=== PATIENT | female | born 1985 | race Caucasian/White ===

== ENCOUNTER 2019-01-28 09:25 | Emergency (ER) | payer BC ==
[~2019-01-28] VITALS: Ht 165.1 cm; Wt 75.3 kg
--- OUTSIDE RECORDS SUMMARY | 2019-01-28 09:28 | XMS REPORT | Clinical Summary ---
Author Author [facility] Organization [facility] Address Unknown Phone Unavailable Care Team Providers Care Manager Billing Name Role Phone Asked, No Pcp PCP Unavailable Allergies Comments Active Allergy Reactions Severity Noted Date Sumatriptan Other (See 08/01/2015 Comments) Medications End Date Status Medication Sig Dispensed Refills Start Date Active metoprolol succinate XL Take 25 mg by 0 (TOPROL-XL) 25 MG 24 hr mouth 2 (two) tablet times a day. Active valACYclovir (VALTREX) Take 500 mg 0 500 MG tablet by mouth daily. Active butalbital-acetaminophen- Take 1 0 caff (FIORICET) 50-300-40 capsule by mg capsule mouth every 4 (four) hours as needed (for headaches). Active acetaminophen (TYLENOL) Take 1,000 mg 0 500 MG tablet by mouth every 6 (six) hours as needed for mild pain. Active PNV no.95/ferrous Take 1 tablet 0 fum/folic ac ( by mouth ORAL) daily. Active ibuprofen (ADVIL) 200 MG Take 600 mg 0 tablet by mouth every 6 (six) hours as needed for mild pain. 02/10/2018 Discontinued (Med List Cleanup) etonogestrel-ethinyl Insert 1 each 0 estradiol (NUVARING) into the 0.12-0.015 mg/24 hr vagina every vaginal ring 28 days. Insert vaginally and leave in place for 3 consecutive weeks, then remove for 1 week. 02/10/2018 Discontinued (Med List Cleanup) azithromycin (ZITHROMAX Take 2 6 tablet 0 Z-TIA) 250 MG tablets the 6 tabletIndications: URI first day, (upper respiratory then 1 tablet infection) daily for 4 days. Active Problems Problem Noted Date Headache behind the eyes 02/11/2018 Intractable headache 02/10/2018 Abnormal cervical Papanicolaou smear with positive human papilloma virus 08/01/2015 (HPV) DNA test Atopic rhinitis 08/01/2015 Atypical squamous cells of undetermined significance on cytologic smear of 08/01/2015 cervix (ASC-US) Carpal tunnel syndrome 08/01/2015 Celiac disease 08/01/2015 Cervical intraepithelial neoplasia grade 1 08/01/2015 Chronic sinusitis 08/01/2015 Fatigue 08/01/2015 Pain of hand 08/01/2015 Long QT syndrome 08/01/2015 Migraine 08/01/2015 Estimated Date of Delivery Comments Yes 02/22/2018 Encounters Care Team Description Date Type Specialty Adams Frausto MD Unspecified visual field defects (Primary Dx); 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 Office Visit Ophthalmology Adams Frausto MD Committee Review 04/22/2018 Documentation [facility], Ophthalmology - Clinical Care 03/24/2018 Telephone Ophthalmology Michelle Farias MD 02/11/2018 Orders Only Obstetrics and Gynecology Michelle Farias MD Headache 02/10/2018 Documentation Obstetrics Michelle Hadley MD 02/10/2018 Documentation Obstetrics and Gynecology Michelle Farias MD Acute intractable headache, unspecified headache type (Primary Dx); 38 weeks gestation of 02/10/2018 Orders Only Obstetrics and Gynecology Gissell Gomes 02/10/2018 Telephone Ophthalmology Aneta Dickinson MD Tu, Yen-Te Christian, MD Ortique, Carla F., MD Intractable migraine with status migrainosus, unspecified migraine type (Primary Dx); Intractable headache, unspecified chronicity pattern, unspecified headache type; Acute intractable headache, unspecified headache type; 38 weeks gestation of 02/09/2018 Emergency Obstetrics and Gynecology - 02/11/2018 after 01/27/2018 Family History Medical History Relation Name Comments Heart disease Father Thyroid cancer Father Arthritis Mother tumor of vulva Gallbladder disease Mother tumor of vulva Heart disease Mother tumor of vulva Relation Name Status Comments Father Mother tumor of vulva Social History Date Tobacco Use Types Packs/Day Years Used Never Smoker Smokeless Tobacco: Never Used Drinks/Week oz/Week Comments Alcohol Use No Alcohol Habits Answer Date Recorded How often do you have a drink containing alcohol? Never 08/01/2018 How many drinks containing alcohol do you have on Not asked a typical day when you are drinking? How often do you have six or more drinks on one Not asked occasion? Estimated Date of Delivery Comments Yes 02/22/2018 Sex Assigned at Date Recorded Not on file Industry Job Start Date Occupation Not on file Not on file Not on file Travel End Travel History Travel Start No recent travel history available. Last Filed Vital Signs Reading Time Taken Comments Vital Sign 90/58 02/11/2018 8:30 AM CDT Blood Pressure 62 02/11/2018 8:30 AM CDT Pulse 36.3 C (97.3 F) 02/11/2018 8:30 AM CDT Temperature 16 02/11/2018 8:30 AM CDT Respiratory Rate 97% 02/10/2018 6:00 PM CDT Oxygen Saturation - - Inhaled Oxygen Concentration 77.1 kg (170 lb) 08/01/2018 8:58 AM HOT WALKER Weight 165.1 cm (5' 5") 08/01/2018 8:58 AM HOT WALKER Height 28.29 08/01/2018 8:58 AM HOT WALKER Body Mass Index Plan of Treatment Health Maintenance Due Date Last Done Comments CERVICAL CANCER SCREENING 2007 INFLUENZA VACCINE 12/25/2018 Procedures Comments Procedure Name Priority Date/Time Associated Diagnosis OCT, OPTIC NERVE - OU - Routine 08/01/2018 Unspecified visual field BOTH EYES 9:37 AM HOT WALKER defects Binocular vision disorder with diplopia AUTOMATED VISUAL FIELD, Routine 08/01/2018 Unspecified visual field EXTENDED - OU - BOTH EYES 9:36 AM HOT WALKER defects Binocular vision disorder with diplopia TYPE AND SCREEN, Routine 02/11/2018 OBSTETRICAL PATIENT 8:50 AM CDT T4, FREE Routine 02/11/2018 8:50 AM CDT THYROID STIMULATING Routine 02/11/2018 HORMONE 8:50 AM CDT LIPID PANEL Routine 02/11/2018 8:50 AM CDT HEMOGLOBIN A1C Routine 02/11/2018 8:50 AM CDT ESTIMATED GFR Routine 02/11/2018 7:18 AM CDT COMPREHENSIVE METABOLIC Routine 02/11/2018 PANEL 7:18 AM CDT GLUCOSE LEVEL, CSF Routine 02/10/2018 1:05 PM CDT PROTEIN, CSF Routine 02/10/2018 1:05 PM CDT CSF CELL COUNT WITH Routine 02/10/2018 DIFFERENTIAL 1:05 PM CDT GRAM STAIN Routine 02/10/2018 1:05 PM CDT CRYPTOCOCCAL ANTIGEN Routine 02/10/2018 SCREEN 1:05 PM CDT FUNGUS CULTURE Routine 02/10/2018 1:05 PM CDT CSF CULTURE Routine 02/10/2018 1:05 PM CDT MRI BRAIN & ORBIT WO STAT 02/10/2018 CONTRAST 8:08 AM CDT MRI BRAIN VENOGRAM STAT 02/10/2018 7:19 AM CDT MRA HEAD WO CONTRAST STAT 02/10/2018 7:07 AM CDT MRA NECK WO CONTRAST STAT 02/10/2018 6:55 AM CDT AST (SGOT) STAT 02/10/2018 12:32 AM CDT ALKALINE PHOSPHATASE STAT 02/10/2018 12:32 AM CDT POTASSIUM LEVEL STAT 02/10/2018 12:32 AM CDT URINALYSIS SCREEN AND Routine 02/10/2018 MICROSCOPY, WITH REFLEX 12:32 AM CDT TO CULTURE URINE CULTURE Routine 02/10/2018 12:25 AM CDT ESTIMATED GFR STAT 02/09/2018 10:53 PM CDT SEDIMENTATION RATE STAT 02/09/2018 10:53 PM CDT COMPREHENSIVE METABOLIC STAT 02/09/2018 PANEL 10:53 PM CDT HC COMPLETE BLD COUNT STAT 02/09/2018 W/AUTO DIFF 10:53 PM CDT after 01/27/2018 Results * OCT, Optic Nerve - OU (08/01/2018 9:37 AM HOT WALKER) Specimen Narrative Performed At Right Eye Reliability was good. Temporal progression was stable. Superior progression was stable. Nasal progression was stable. Inferior progression was stable. Left Eye Reliability was good. Temporal progression was stable. Superior progression was stable. Nasal progression was stable. Inferior progression was stable. * Automated Visual Field, Extended - OU (08/01/2018 9:36 AM HOT WALKER) Specimen Narrative Performed At Right Eye Threshold was 24-2. Strategy was ERICA. Reliability was good. Progression has been stable. Foveal threshold was normal. Findings include normal observations. Left Eye Threshold was 24-2. Strategy was ERICA. Reliability was good. Progression has been stable. Foveal threshold was normal. Findings include normal observations. * Type and screen, obstetrical patient (02/11/2018 8:50 AM CDT) Pathologist [facility] ABO grouping O [facility] DEPARTMENT OF PATHOLOGY AND GENOMIC MEDICINE Rh type POS [facility] DEPARTMENT OF PATHOLOGY AND GENOMIC MEDICINE Antibody screen NEG [facility] DEPARTMENT (gel) OF PATHOLOGY AND GENOMIC MEDICINE Specimen Blood Performing Organization Address [facility] [place] [address] PATHOLOGY AND [facility] MEDICINE * Thyroid stimulating hormone (02/11/2018 8:50 AM CDT) Pathologist [facility] TSH 3.14 0.27 - 4.20 uIU/mL [facility] DEPARTMENT OF PATHOLOGY AND GENOMIC MEDICINE Specimen Plasma specimen Performing Organization Address City/[facility] [place] [address] PATHOLOGY AND [facility] MEDICINE * T4, free (02/11/2018 8:50 AM CDT) Pathologist [facility] T4, free 1.0 0.9 - 1.7 ng/dL [facility] DEPARTMENT OF PATHOLOGY AND GENOMIC MEDICINE Specimen Plasma specimen Performing Organization Address [facility] Cent[facility] [place] [address] PATHOLOGY AND [facility] MEDICINE * Hemoglobin A1c (02/11/2018 8:50 AM CDT) Pathologist [facility] Hemoglobin A1C 5.2 4.0 - 5.6 % [facility] DEPARTMENT Comment: OF PATHOLOGY HbA1c cutoffs for diagnosing AND GENOMIC diabetes: MEDICINE 4.0% - 5.6%=normal 5.7% - 6.4%=increased risk for diabetes (prediabetes) >=6.5%=diabetes Goals for glycemic control (ADA 2016) < 7.0%Target for non adults with diabetes. More or less stringent targets may be appropriate for individual patients. <7.5% Target for Children and adolescents with type 1 diabetes. Specimen Blood Performing Organization Address City/[facility] Phone Number [facility] DEPARTMENT OF [address] [place] [address] PATHOLOGY AND GENOMIC MEDICINE * Lipid panel (02/11/2018 8:50 AM CDT) Cholesterol 219 (H) <200 mg/dL [facility] DEPARTMENT OF PATHOLOGY AND GENOMIC MEDICINE Triglycerides 248 (H) <150 mg/dL [facility] DEPARTMENT OF PATHOLOGY AND GENOMIC MEDICINE HDL cholesterol 56 >40 mg/dL [facility] DEPARTMENT OF PATHOLOGY AND GENOMIC MEDICINE LDL cholesterol 128 (H)Comment: Result <100 mg/dL [facility] DEPARTMENT obtained by direct LDL OF PATHOLOGY measurement AND GENOMIC MEDICINE Lipid panel SeeBelow [facility] DEPARTMENT interpretation Comment: OF PATHOLOGY Total Cholesterol AND GENOMIC (mg/dL) MEDICINE <200 Desirable 200-239Borderline -high >=240High Triglycerides (mg/dL) <150 Normal 150-199Borderline -high 200-499High >=500Very high HDL Cholesterol (mg/dL) <40Low (male) <40Low (female) LDL Cholesterol (mg/dL) <100 Optimal 100-129Near or above optimal 130-159Borderline -high 160-189High >=190Very high Risk Catergories that modify LDL goals. Risk Catergories LDL goal (mg/dL) CHD and CHD risk equivalent<100 (10-year risk >20%) Multiple (2+) risk factors <130 (10-year risk=<20%) 0-1 risk factors <160 (<10-year risk) Defining levels of lipids in metabolic syndrome Triglycerides >=150 mg/dL HDL Cholesterol Men <40 mg/dL Women <40 mg/dL Non-HDL cholesterol is a second target for therapy in persons with high triglycerides (>=200 mg/dL) Specimen Plasma specimen Performing Organization Address City/State/Zipcode Phone Number [facility] [address] [place] [id number] PATHOLOGY AND [employer] [facility] * Estimated GFR (02/11/2018 7:18 AM CDT) Only the most recent of 2 results within the time period is included. [facility] Estimated GFR >=90 mL/min/1.73 m2 [facility] DEPARTMENT Comment: OF PATHOLOGY CatergoryUnitsInte AND GENOMIC rpretation MEDICINE G1 >=90 Normal or high G2 60-89Mildly decreased [id number] Mildly to moderately decreased [id number] Moderately to severely decreased G4 15-29Severely decreased G5 <15Kidney failure The eGFR was calculated using the Chronic Kidney Disease Epidemiology Collaboration (CKD-EPI) equation. Interpretation is based on recommendations of the National Kidney Foundation-Kidney Disease Outcomes Quality Initiative (NKF-KDOQI) published in 2014. Specimen Plasma specimen Performing Organization Address City/State/Zipcode Phone Number [address] [address] PATHOLOGY [facility] [employer] [facility] * Comprehensive metabolic panel (02/11/2018 7:18 AM CDT) Only the most recent of 2 results within the time period is included. [facility] Sodium 137 135 - 148 mEq/L [facility] DEPARTMENT OF PATHOLOGY AND GENOMIC MEDICINE Potassium 4.2 3.5 - 5.0 mEq/L [facility] DEPARTMENT OF PATHOLOGY AND GENOMIC MEDICINE Chloride 102 98 - 112 mEq/L [facility] DEPARTMENT OF PATHOLOGY AND GENOMIC MEDICINE CO2 22 (L) 24 - 31 mEq/L [facility] DEPARTMENT OF PATHOLOGY AND GENOMIC MEDICINE Anion gap 13@ANIO 7 - 15 mEq/L [facility] DEPARTMENT OF PATHOLOGY AND GENOMIC MEDICINE BUN 10 6 - 20 mg/dL [facility] DEPARTMENT OF PATHOLOGY AND GENOMIC MEDICINE Creatinine 0.77 0.50 - 0.90 mg/dL [facility] DEPARTMENT OF PATHOLOGY AND GENOMIC MEDICINE Glucose 76 65 - 99 mg/dL [facility] DEPARTMENT OF PATHOLOGY AND GENOMIC MEDICINE Calcium 8.8 8.3 - 10.2 mg/dL [facility] DEPARTMENT OF PATHOLOGY AND GENOMIC MEDICINE Protein 6.3 6.3 - 8.3 g/dL [facility] DEPARTMENT Comment: OF PATHOLOGY [place] AND GENOMIC 4.6-7.0 g/dL MEDICINE 1 week 4.4-7.6 g/dL 7 months-1year 5.1-7.3 g/dL 1-2 years5.6-7 .5 g/dL >3 years6.0-8 .0 g/dL 18-150 6.3-8.3 g/dL Albumin 2.4 (L) 3.5 - 5.0 g/dL [facility] DEPARTMENT OF PATHOLOGY AND GENOMIC MEDICINE A/G ratio 0.6 (L) 0.7 - 3.8 [facility] DEPARTMENT OF PATHOLOGY AND GENOMIC MEDICINE Alkaline 101 35 - 104 U/L [facility] DEPARTMENT phosphatase OF PATHOLOGY AND GENOMIC MEDICINE AST 17 10 - 35 U/L [facility] DEPARTMENT OF PATHOLOGY AND GENOMIC MEDICINE ALT 17 5 - 50 U/L [facility] DEPARTMENT OF PATHOLOGY AND GENOMIC MEDICINE Total bilirubin 0.3 0.0 - 1.2 mg/dL [facility] DEPARTMENT OF PATHOLOGY AND GENOMIC MEDICINE Specimen Plasma specimen Performing Organization Address City/[facility] Phone Number [facility] [place] [address] PATHOLOGY AND GENOMIC MEDICINE * Cryptococcal antigen, screen (02/10/2018 1:05 PM CDT) Pathologist [facility] Cryptococcal Ag Negative - No Cryptococcus [facility] DEPARTMENT antigen detected. OF PATHOLOGY Comment: AND GENOMIC Specimen Information MEDICINE Specimen Source: CSF (Spinal Fluid) Specimen Site: Tube 2 Colorless Specimen Cerebrospinal fluid - Tube 1 Performing Organization Address City/[facility] Phone Number [facility] [place] [address] PATHOLOGY AND GENOMIC MEDICINE * Gram stain (02/10/2018 1:05 PM CDT) Pathologist [facility] Gram stain No WBC's or organisms seen. [facility] DEPARTMENT isolate Comment: OF PATHOLOGY Specimen Information AND GENOMIC Specimen Source: CSF (Spinal MEDICINE Fluid) Specimen Site: Tube 2 Colorless Specimen Cerebrospinal fluid Performing Organization Address City/State/Zipcode Phone Number [facility] [place] [address] PATHOLOGY AND GENOMIC MEDICINE * CSF culture (02/10/2018 1:05 PM CDT) Pathologist [facility] CSF culture No growth after 3 days. [facility] DEPARTMENT isolate Comment: OF PATHOLOGY Specimen Information AND GENOMIC Specimen Source: CSF (Spinal MEDICINE Fluid) Specimen Site: Tube 2 Colorless Specimen Cerebrospinal fluid - Tube 1 Performing Organization Address City/[facility]/Zipcode Phone Number [facility] [place] [address] PATHOLOGY AND GENOMIC MEDICINE * Fungus culture (02/10/2018 1:05 PM CDT) Fungus culture No growth after 4 weeks of [facility] DEPARTMENT isolate incubation. OF PATHOLOGY Comment: AND GENOMIC Specimen Information MEDICINE Specimen Source: CSF (Spinal Fluid) Specimen Site: Tube 2 Colorless Specimen Cerebrospinal fluid - Tube 1 Performing Organization Address [facility] Cent[facility] [place] [address] PATHOLOGY AND GENOMIC MEDICINE * CSF cell count with differential (02/10/2018 1:05 PM CDT) CSF tube number Tube 1 [facility] DEPARTMENT OF PATHOLOGY AND GENOMIC MEDICINE Color, CSF Colorless [facility] DEPARTMENT OF PATHOLOGY AND GENOMIC MEDICINE Appearance, CSF Clear [facility] DEPARTMENT OF PATHOLOGY AND GENOMIC MEDICINE RBC, CSF 12 (H) 0 - 1 /CMM [facility] DEPARTMENT OF PATHOLOGY AND GENOMIC MEDICINE WBC, CSF 0 0 - 5 /CMM [facility] DEPARTMENT OF PATHOLOGY AND GENOMIC MEDICINE CSF mononuclear 0/CMM [facility] DEPARTMENT cell OF PATHOLOGY AND [employer] MEDICINE Specimen Cerebrospinal fluid Performing Organization Address [facility] Phone Number [facility] [place] [address] PATHOLOGY AND [employer] MEDICINE * Protein, CSF (02/10/2018 1:05 PM CDT) Protein, CSF 20 15 - 45 mg/dL [facility] DEPARTMENT OF PATHOLOGY AND GENOMIC MEDICINE Specimen Cerebrospinal fluid Performing Organization Address [facility] Cent[facility] [place] [address] PATHOLOGY AND [facility] * Glucose level, CSF (02/10/2018 1:05 PM CDT) Glucose, CSF 45 40 - 70 mg/dL [facility] DEPARTMENT OF PATHOLOGY AND GENOMIC MEDICINE Specimen Cerebrospinal fluid Performing Organization Address [facility] Center[facility] [place] [address] PATHOLOGY AND [facility] MEDICINE * MRI Brain & Orbits wo contrast (02/10/2018 8:08 AM CDT) Specimen Narrative Performed At EXAMINATION:MRI BRAIN & ORBITWO CONTRAST [facility] CLINICAL HISTORY:headache lr6 palsyorbits added by neurologist COMPARISON:MR angiography brain February 10, 2018.. FINDINGS: 1.Diffusion images demonstrate no evidence of acute ischemia in the brain. 2.Conventional images of the brain demonstrate no significant abnormality. Specifically there are no definite white matter lesions. There is no volume loss. There is no abnormality in the brainstem. 3.Images of the orbits demonstrate no intraorbital abnormality. There is no evidence of a cavernous sinus lesion. There is a slightly more tortuous and ectatic cavernous carotid artery on the right compared to the left. There is no evidence of aneurysm on the MRI angiogram. 4.There is minimal mucosal thickening in the ethmoid sinus. IMPRESSION: No significant abnormality. [facility]-[id number] Procedure Note Interface, Radiology Results - 02/10/2018 8:28 AM CDT EXAMINATION: MRI BRAIN & ORBIT WO CONTRAST CLINICAL HISTORY: headache lr6 palsy orbits added by neurologist COMPARISON: MR angiography brain February 10, 2018.. FINDINGS: 1. Diffusion images demonstrate no evidence of acute ischemia in the brain. 2. Conventional images of the brain demonstrate no significant abnormality. Specifically there are no definite white matter lesions. There is no volume loss. There is no abnormality in the brainstem. 3. Images of the orbits demonstrate no intraorbital abnormality. There is no evidence of a cavernous sinus lesion. There is a slightly more tortuous and ectatic cavernous carotid artery on the right compared to the left. There is no evidence of aneurysm on the MRI angiogram. 4. There is minimal mucosal thickening in the ethmoid sinus. IMPRESSION: No significant abnormality. [facility]-[id number] Performing Organization Address City/State/Zipcode Phone Number [facility] [address] [place] [address] * MRI Brain Venogram (02/10/2018 7:19 AM CDT) Specimen Narrative Performed At EXAMINATION:MRI BRAIN VENOGRAM [facility] CLINICAL HISTORY:Headachechronicnormal neuro exam COMPARISON:None. TECHNIQUE: Head MRV using 2D [id number] technique with multiplanar MIP reconstruction. FINDINGS: There is normal flow-related signal with no significant stenosis or filling defect within bilateral internal cerebral veins, basal veins of [place], vein of [place], straight sinus, superior sagittal sinus, transverse and sigmoid sinuses, and internal jugular veins. The right transverse-sigmoid sinus-internal jugular vein complex is mildly dominant. IMPRESSION: Unremarkable head MRV with no significant stenosis or evidence of venous thrombosis. [id number] Procedure Note Interface, Radiology Results Incoming - 02/10/2018 7:48 AM CDT EXAMINATION: MRI BRAIN VENOGRAM CLINICAL HISTORY: Headache chronic normal neuro exam COMPARISON: None. TECHNIQUE: Head MRV using 2D [id number] technique with multiplanar MIP reconstruction. FINDINGS: There is normal flow-related signal with no significant stenosis or filling defect within bilateral internal cerebral veins, basal veins of [place], vein of [place], straight sinus, superior sagittal sinus, transverse and sigmoid sinuses, and internal jugular veins. The right transverse-sigmoid sinus-internal jugular vein complex is mildly dominant. IMPRESSION: Unremarkable head MRV with no significant stenosis or evidence of venous thrombosis. [id number] Performing Organization Address City/State/Zipcode Phone Number [facility] [address] [place] [address] * MRA Head Wo Contrast (02/10/2018 7:07 AM CDT) Specimen Narrative Performed At EXAMINATION:MRA HEAD WO CONTRAST [facility] CLINICAL HISTORY:STROKE COMPARISON:None. TECHNIQUE: Head MRA using 3D [id number] technique with multiplanar MIP reconstruction were obtained. FINDINGS: There is normal flow signal with no significant stenosis or occlusion along bilateral intracranial ICAs, ACAs, and MCAs. The anterior communicating artery complex is unremarkable. There is normal flow signal with no significant stenosis or occlusion along bilateral vertebral arteries, basilar artery, cerebellar arteries, and maternity floor supervisor. There is mild-moderate tortuosity of the vertebral and basilar arteries. The left vertebral artery is mildly dominant. The posterior communicating arteries are unremarkable. There is no evidence of cerebral aneurysm in the proximal [place] within limits of MRA technique. IMPRESSION: Unremarkable head MRA with no significant stenosis or occlusion in the proximal [place]. [facility]-[id number] Procedure Note Interface, Radiology Results Incoming - 02/10/2018 7:27 AM CDT EXAMINATION: MRA HEAD WO CONTRAST CLINICAL HISTORY: STROKE COMPARISON: None. TECHNIQUE: Head MRA using 3D [id number] technique with multiplanar MIP reconstruction were obtained. FINDINGS: There is normal flow signal with no significant stenosis or occlusion along bilateral intracranial ICAs, ACAs, and MCAs. The anterior communicating artery complex is unremarkable. There is normal flow signal with no significant stenosis or occlusion along bilateral vertebral arteries, basilar artery, cerebellar arteries, and maternity floor supervisor. There is mild-moderate tortuosity of the vertebral and basilar arteries. The left vertebral artery is mildly dominant. The posterior communicating arteries are unremarkable. There is no evidence of cerebral aneurysm in the proximal [place] within limits of MRA technique. IMPRESSION: Unremarkable head MRA with no significant stenosis or occlusion in the proximal [place]. [facility]-[id number] Performing Organization Address [facility] Phone Number GUME [address] [place] [address] * MRA Neck Wo Contrast (02/10/2018 6:55 AM CDT) Specimen Narrative Performed At [facility] EXAMINATION:MRA NECK WO CONTRAST CLINICAL HISTORY:STROKE COMPARISON:None. TECHNIQUE: Neck MRA using 2D and 3D [id number] technique with multiplanar MIP reconstruction. 3D T1 CUBE with fat saturation and multiplanar reconstruction. FINDINGS: There is normal flow signal with no significant stenosis or occlusion along bilateral common, internal, and external carotid arteries. There is normal flow signal with no significant stenosis or occlusion along bilateral vertebral arteries. The left vertebral artery is mildly dominant. IMPRESSION: Unremarkable neck MRA with no significant carotid or vertebral artery stenosis. [id number] Procedure Note Interface, Radiology Results Incoming - 02/10/2018 7:14 AM CDT EXAMINATION: MRA NECK WO CONTRAST CLINICAL HISTORY: STROKE COMPARISON: None. TECHNIQUE: Neck MRA using 2D and 3D xjce-gg-[id number] technique with multiplanar MIP reconstruction. 3D T1 CUBE with fat saturation and multiplanar reconstruction. FINDINGS: There is normal flow signal with no significant stenosis or occlusion along bilateral common, internal, and external carotid arteries. There is normal flow signal with no significant stenosis or occlusion along bilateral vertebral arteries. The left vertebral artery is mildly dominant. IMPRESSION: Unremarkable neck MRA with no significant carotid or vertebral artery stenosis. [facility]-[id number] Performing Organization Address City/[facility] Cent[facility]ode Phone Number GUME [address] [place] [address] * Urinalysis screen and microscopy, with reflex to culture (02/10/2018 12:32 AM CDT) Specimen site Clean catch [facility] DEPARTMENT OF PATHOLOGY AND GENOMIC MEDICINE Color, UA Straw [facility] DEPARTMENT OF PATHOLOGY AND GENOMIC MEDICINE Appearance, UA Clear [facility] DEPARTMENT OF PATHOLOGY AND GENOMIC MEDICINE Specific 1.008 1.001 - 1.035 [facility] DEPARTMENT gravity, UA OF PATHOLOGY AND GENOMIC MEDICINE pH, UA 7.0 5.0 - 8.5 [facility] DEPARTMENT OF PATHOLOGY AND GENOMIC MEDICINE Protein, UA Negative Negative [facility] DEPARTMENT OF PATHOLOGY AND GENOMIC MEDICINE Glucose, UA Negative Negative [facility] DEPARTMENT OF PATHOLOGY AND GENOMIC MEDICINE Ketones, UA Negative Negative [facility] DEPARTMENT OF PATHOLOGY AND GENOMIC MEDICINE Bilirubin, UA Negative Negative [facility] DEPARTMENT OF PATHOLOGY AND GENOMIC MEDICINE Blood, UA Negative Negative [facility] DEPARTMENT OF PATHOLOGY AND GENOMIC MEDICINE Nitrite, UA Negative Negative [facility] DEPARTMENT OF PATHOLOGY AND GENOMIC MEDICINE Urobilinogen, <2.0 <2.0 [facility] DEPARTMENT UA OF PATHOLOGY AND GENOMIC MEDICINE Leukocyte Negative Negative [facility] DEPARTMENT esterase, UA OF PATHOLOGY AND GENOMIC MEDICINE WBC, UA <1 0 - 4 /HPF [facility] DEPARTMENT OF PATHOLOGY AND GENOMIC MEDICINE RBC, UA None seen 0 - 5 /HPF [facility] DEPARTMENT OF PATHOLOGY AND GENOMIC MEDICINE Bacteria, UA None seen None seen [facility] DEPARTMENT OF PATHOLOGY AND GENOMIC MEDICINE Yeast, UA None seen [facility] DEPARTMENT OF PATHOLOGY AND GENOMIC MEDICINE Yeast with None seen [facility] DEPARTMENT pseudohyphae, OF PATHOLOGY UA AND GENOMIC MEDICINE Specimen Urine Performing Organization Address City/[facility] [place]erc[place] [address] PATHOLOGY AND GENOMIC MEDICINE * AST (SGOT) (02/10/2018 12:32 AM CDT) AST 16 10 - 35 U/L [facility] DEPARTMENT OF PATHOLOGY AND GENOMIC MEDICINE Specimen Plasma specimen Performing Organization Address City/[facility] Centercode [place] [address] PATHOLOGY AND GENOMIC MEDICINE * Potassium level (02/10/2018 12:32 AM CDT) Potassium 4.0 3.5 - 5.0 mEq/L [facility] DEPARTMENT OF PATHOLOGY AND GENOMIC MEDICINE Specimen Plasma specimen Performing Organization Address City/[facility] Centercode [place] [address] PATHOLOGY AND [facility] MEDICINE * Alkaline phosphatase (02/10/2018 12:32 AM CDT) Alkaline 108 (H) 35 - 104 U/L [facility] DEPARTMENT phosphatase OF PATHOLOGY AND GENOMIC MEDICINE Specimen Plasma specimen Performing Organization Address City/[facility] Centercode [place] [address] PATHOLOGY AND GENOMIC MEDICINE * Urine culture (02/10/2018 12:25 AM CDT) Urine culture SEE COMMENTComment: [facility] DEPARTMENT Bacteriuria screen negative. OF PATHOLOGY AND GENOMIC MEDICINE Specimen Performing Organization Address City/[facility]/Zipcode Phone Number [facility] DEPARTMENT OF [address] [place] [id number] PATHOLOGY AND GENOMIC MEDICINE * Sedimentation rate (02/09/2018 10:53 PM CDT) Pathologist [facility] Sedimentation 19 0 - 20 mm/hr [facility] DEPARTMENT rate OF PATHOLOGY AND GENOMIC MEDICINE Specimen Blood Narrative Performed At Hemolyzed K AST ALT ALP. Notified ENEDELIA Whitfield/CARLOS MANUEL [facility] DEPARTMENT OF AT02/09/201823:52 PATHOLOGY AND by pxn to recollect. GENOMIC MEDICINE Performing Organization Address City/State/Zipcode Phone Number [facility] DEPARTMENT OF [address] [place] [address] PATHOLOGY AND GENOMIC MEDICINE * CBC with platelet and differential (02/09/2018 10:53 PM CDT) WBC 14.70 (H) 4.50 - 11.00 k/uL [facility] DEPARTMENT OF PATHOLOGY AND GENOMIC MEDICINE RBC 4.51 4.20 - 5.50 m/uL [facility] DEPARTMENT OF PATHOLOGY AND GENOMIC MEDICINE HGB 13.9 12.0 - 16.0 g/dL [facility] DEPARTMENT OF PATHOLOGY AND GENOMIC MEDICINE HCT 40.1 37.0 - 47.0 % [facility] DEPARTMENT OF PATHOLOGY AND GENOMIC MEDICINE MCV 88.9 82.0 - 100.0 fL [facility] DEPARTMENT OF PATHOLOGY AND GENOMIC MEDICINE MCH 30.8 27.0 - 34.0 pg [facility] DEPARTMENT OF PATHOLOGY AND GENOMIC MEDICINE MCHC 34.7 31.0 - 37.0 g/dL [facility] DEPARTMENT OF PATHOLOGY AND GENOMIC MEDICINE RDW - SD 43.4 37.0 - 55.0 fL [facility] DEPARTMENT OF PATHOLOGY AND GENOMIC MEDICINE MPV 12.7 8.8 - 13.2 fL [facility] DEPARTMENT OF PATHOLOGY AND GENOMIC MEDICINE Platelet count 189 150 - 400 k/uL [facility] DEPARTMENT OF PATHOLOGY AND GENOMIC MEDICINE Nucleated RBC 0.00 /100 WBC [facility] DEPARTMENT OF PATHOLOGY AND GENOMIC MEDICINE Neutrophils 74.0 (H) 39.0 - 69.0 % [facility] DEPARTMENT OF PATHOLOGY AND GENOMIC MEDICINE Lymphocytes 16.2 (L) 25.0 - 45.0 % [facility] DEPARTMENT OF PATHOLOGY AND GENOMIC MEDICINE Monocytes 8.0 0.0 - 10.0 % [facility] DEPARTMENT OF PATHOLOGY AND GENOMIC MEDICINE Eosinophils 0.9 0.0 - 5.0 % [facility] DEPARTMENT OF PATHOLOGY AND GENOMIC MEDICINE Basophils 0.2 0.0 - 1.0 % [facility] DEPARTMENT OF PATHOLOGY AND GENOMIC MEDICINE Immature 0.7Comment: "Immature 0.0 - 1.0 % [facility] DEPARTMENT granulocytes granulocytes" (promyelocytes, OF PATHOLOGY myelocytes, metamyelocytes) AND GENOMIC MEDICINE Specimen Blood Performing Organization Address City/State/Zipcode Phone Number [facility] DEPARTMENT OF [address] [place] [address] PATHOLOGY AND GENOMIC MEDICINE after 01/27/2018 Insurance Type Payer Benefit Subscriber ID Effective Phone Address Plan / Dates Group PPO BCBS BCBS xxxxxxxxxxxx [id number] CHOICE resent PPO/[employer] EMPL PPO HMO [facility] xxxxxxxxx 2015-P THCARE resent CHOICE/+ Advance Directives For more information, please contact: [phone] Patient Rehabilitation Attendant Explanation Type Date Recorded Advance Directives, 02/10/2018 2:17 PM Living Will and Medical Power of Residential Treatment Specialist Date Inactivated Comments Code Status Date Activated 02/11/2018 5:33 PM Full Code 02/11/2018 7:17 AM Code Status decision reached by: Patient
[2019-01-28] MEDS ORDERED: MORPHINE SULFATE INJ 4 MG/ML INJ 1ML IV STA (09:57)
[2019-01-28] MEDS ORDERED: ONDANSETRON HCL INJ 2MG/ML 2ML 2 MG/ML VIAL IV STA (09:57)
[2019-01-28] MEDS ORDERED: PANTOPRAZOLE 40 MG 10ML VIAL IV STA (09:57)
[2019-01-28] MEDS ORDERED: SODIUM CHLORIDE 0.9% 1000ML 1,000 ML IV STA ×2 (09:57)
[2019-01-28 10:17] LABS: BASOPHILS % 0.1 % (0.0-1.0); HEMATOCRIT 42.5 % (34.2-44.1); HEMOGLOBIN 14.4 g/dL (12.0-16.0); LYMPHOCYTES # (AUTO) 0.2 (1.0-3.2); LYMPHOCYTES % 1.7 % (18.0-39.1); MEAN CORPUSCULAR HEMOGLOBIN 30.3 pg (28-32); MEAN CORPUSCULAR HGB CONC 33.9 g/dL (31-35); MEAN CORPUSCULAR VOLUME 89.3 fL (81-99); MONOCYTES # (AUTO) 0.3 (0.2-0.8); MONOCYTES % 2.2 % (4.4-11.3); NEUTROPHILS # (AUTO) 13.5 (2.1-6.9); NEUTROPHILS % 95.6 % (38.7-80.0); PLATELET COUNT 198 x10e3/uL (140-360); RED BLOOD COUNT 4.76 x10e6/uL (3.6-5.1); RED CELL DISTRIBUTION WIDTH 12.8 % (11.7-14.4)
[2019-01-28 10:22] LABS: BILIRUBIN,URINE NEGATIVE (NEGATIVE); CLARITY,URINE SL CLOUDY (CLEAR); COLOR,URINE YELLOW (YELLOW); KETONES,URINE 1+ (NEGATIVE); LEUKOCYTE ESTERASE ,URINE NEGATIVE (NEGATIVE); NITRITE,URINE NEGATIVE (NEGATIVE); PROTEIN,URINE DIPSTICK NEGATIVE (NEGATIVE); URINE UROBILINOGEN 0.2 mg/dL (0.2 - 1)
[2019-01-28 10:23] LABS: PREGNANCY TEST, URINE NEGATIVE (NEGATIVE)
[2019-01-28 10:26] LABS: BACTERIA,URINE MANY /HPF; RBC,URINE 0-5 /HPF (0-5); WBC,URINE (MAN) 0-5 /HPF (0-5)
[2019-01-28 10:27] LABS: AMORPHOUS SEDIMENT,URINE MANY (FEW); EPITHELIAL CELLS,URINE MODERATE /LPF
[2019-01-28 10:41] LABS: ALANINE AMINOTRANSFERASE 11 IU/L (0-55); ALBUMIN 3.9 g/dL (3.5-5.0); ALBUMIN/GLOBULIN RATIO 1.3 (0.8-2.0); ALKALINE PHOSPHATASE 83 IU/L (40-150); ANION GAP 12.9 mmol/L (8-16); BLOOD UREA NITROGEN 16 mg/dL (7-26); BUN/CREATININE RATIO 20 (6-25); CALCIUM 9.3 mg/dL (8.4-10.2); CARBON DIOXIDE 23 mmol/L (22-29); CHLORIDE 104 mmol/L (98-107); CREATININE, SERUM 0.79 mg/dL (0.57-1.11); EST GLOMERULAR FILTRATION RATE > 60 ML/MIN (60-); GLUCOSE 108 mg/dL (74-118); POTASSIUM 3.9 mmol/L (3.5-5.1); SODIUM 136 mmol/L (136-145)
[2019-01-28 10:42] LABS: MAGNESIUM 1.8 MG/DL (1.3-2.1)
--- NOTE | 2019-01-28 12:01 | Diagnostic Imaging Report ---
EXAM: US GALLBLADDER DATE: 01/28/2019 9:57 AM INDICATION: Abdominal pain COMPARISON: None FINDINGS: The visualized pancreas appears unremarkable. The liver is normal in size measuring 12.3 cm in length. The hepatic parenchyma is homogeneous without evidence for focal abnormality. The main portal vein is patent with antegrade flow and diameter of 1.1 cm, within normal limits. The gallbladder is unremarkable. There is no evidence for shadowing stones, wall thickening, or pericholecystic fluid. There is no intra or extra hepatic biliary ductal dilatation. The common bile duct measures 3 mm. Sonographic Tucker's sign is negative. The right kidney is normal in size measuring 11.0 cm in length with normal cortical thickness/echogenicity. There is no evidence for solid renal mass, hydronephrosis, or shadowing calculi within the right kidney. The visualized portions the IVC and aorta are within normal limits. There is no ascites visualized. IMPRESSION: Unremarkable right upper quadrant ultrasound examination. Signed by: Dr. Anderson Greer MD on 01/28/2019 11:58 AM
--- NOTE | 2019-01-28 13:11 | Diagnostic Imaging Report ---
CT of the abdomen and pelvis, with contrast. History: Abdominal pain. Comparison: Right upper quadrant ultrasound examination from earlier 01/28/2019. Technique: Multidetector CT scanning of the abdomen and pelvis was performed from the level of the lung bases to the inferior pubic rami after intravenous and oral administration of contrast. Coronal and sagittal multiplanar reformations were obtained. RADIATION DOSE: Total DLP: 441.50 mGy*cm Dose modulation, iterative reconstruction, and/or weight based adjustment of the mA/kV was utilized to reduce the radiation dose to as low as reasonably achievable. FINDINGS: The visualized lungs are clear. The imaged portion of the heart demonstrates no significant abnormalities. The liver is normal in size and attenuation without evidence for focal abnormality. The gallbladder is unremarkable. There is no biliary ductal dilatation. The stomach, spleen, pancreas, and bilateral adrenal glands are unremarkable. The kidneys are normal in size and location concentrate contrast material properly. There is no evidence for hydronephrosis. The ureters are normal course and caliber. The urinary bladder demonstrates no significant abnormalities. There is a trace amount free fluid noted within the pelvis as well as within the endometrial canal, likely physiologic in this premenopausal patient. The right ovary/adnexa appears prominent and contains a 1.6 cm hyperdense structure. The left adnexa is grossly unremarkable. The abdominal aorta is normal course and caliber. The IVC appears unremarkable. Please note evaluation the bowel is limited without the use of enteric contrast material. The visualized loops of small and large bowel demonstrate no evidence of obstruction or inflammation. The appendix is visualized and appears unremarkable. There is no ascites or intraperitoneal free air. No abnormally enlarged lymph nodes are identified within the abdomen or pelvis. The osseous structures demonstrate no evidence for acute fracture or destructive process. The extra peritoneal soft tissues are unremarkable. IMPRESSION: Prominence of the right adnexa/ovary which contains a 1.6 cm hyperdense structure. Findings are not definitively characterized on this CT examination but may represent a hemorrhagic cyst/involuting follicle. Given symptomatology, follow-up pelvic ultrasound examination is recommended in 6-12 weeks. No other acute abdominopelvic process identified. Signed by: Dr. Anderson Greer MD on 01/28/2019 1:08 PM
[2019-01-28] MEDS ORDERED: DICYCLOMINE HCL20 MG PO (14:00)
[2019-01-28] MEDS ORDERED: PEPCID20 MG PO (14:00)
[2019-01-28] MEDS ORDERED: ZOFRAN4 MG SL (14:00)
[2019-01-28] MEDS ORDERED: SODIUM CHLORIDE 0.9% 50ML 50 ML ONE (14:23)
[2019-01-28] MEDS ORDERED: IOPAMIDOL 370 MG/ML 200 ML INFUS..BTL INJ ONE (14:23)
[2019-01-28 15:34] VITALS: BP 102/62
== END 2019-01-28 14:25 | disposition home or self-care (01) ==
LOC: ER 09:25
DX: R50.9 Fever, unspecified (principal); R10.31 Right lower quadrant pain; R11.2 Nausea with vomiting, unspecified; R19.7 Diarrhea, unspecified; N83.201 Unspecified ovarian cyst, right side
CPT/HCPCS: 36415; 74177; 76705; 80053; 81001; 81025; 83690; 83735; 85025; 87086; 99284; C9113; J2270; J2405; J7030; Q9967

== ENCOUNTER 2019-09-04 11:27 | Emergency (ER) | payer BC ==
[~2019-09-04] VITALS: Ht 165.1 cm; Wt 75.3 kg
[~2019-09-04 11:27] MED LIST: DICYCLOMINE HCL20 MG PO; PEPCID20 MG PO; ZOFRAN4 MG SL
--- OUTSIDE RECORDS SUMMARY | 2019-09-04 11:29 | XMS REPORT ---
Author Author [facility] Address Unknown Phone Unavailable Care Team Providers Care Bad Credit Collector Name Role Phone LEILANI HOWE Unavailable Unavailable Problems This patient has no known problems. Allergies, Adverse Reactions, Alerts This patient has no known allergies or adverse reactions. Medications This patient has no known medications. Results Test Description Test Time Test Comments Text Results Atomic Results Result Comments CT ABDOMEN/PELVIS W 2019-01-28 12:56:00 [place] [address] Patient Name: WILFREDO LI MR #: [id number] : 1985 Age/Sex: 33/F Req #: [id number] [facility] Physician: Ordered by: LEILANI HOWE MD, MD Report #: [id number] Location: ER Room/Bed: Procedure: [id number] CT/CT ABDOMEN/PELVIS W Exam Date: 01/28/19 Exam Time: 1200 REPORT STATUS: Signed CT of the abdomen and pelvis, with contrast. History: Abdominal pain. Comparison: Right upper quadrant ultrasound examination from earlier 01/28/2019. Technique: Multidetector CT scanning of the abdomen and pelvis was performed from the level of the lung bases to the inferior pubic rami after intravenous and oral administration of contrast. Coronal and sagittal multiplanar reformations were obtained. RADIATION DOSE: Total DLP: 441.50 mGy*cm Dose modulation, iterative reconstruction, and/or weight based adjustment of the mA/kV was utilized to reduce the radiation dose to as low as reasonably achievable. FINDINGS: The visualized lungs are clear. The imaged portion of the heart demonstrates no significant abnormalities. The liver is normal in size and attenuation without evidence for focal abnormality. The gallbladder is unremarkable. There is no biliary ductal dilatation. The stomach, spleen, pancreas, and bilateral adrenal glands are unremarkable. The kidneys are normal in size and location concentrate contrast material properly. There is no evidence for hydronephrosis. The ureters are normal course and caliber. The urinary bladder demonstrates no significant abnormalities. There is a trace amount free fluid noted within the pelvis as well as within the endometrial canal, likely physiologic in this premenopausal patient. The right ovary/adnexa appears prominent and contains a 1.6 cm hyperdense structure. The left adnexa is grossly unremarkable. The abdominal aorta is normal course and caliber. The IVC appears unremarkable. Please note evaluation the bowel is limited without the use of enteric contrast material. The visualized loops of small and large bowel demonstrate no evidence of obstruction or inflammation. The appendix is visualized and appears unremarkable. There is no ascites or intraperitoneal free air. No abnormally enlarged lymph nodes are identified within the abdomen or pelvis. The osseous structures demonstrate no evidence for acute fracture or destructive process. The extra peritoneal soft tissues are unremarkable. IMPRESSION: Prominence of the right adnexa/ovary which contains a 1.6 cm hyperdense structure. Findings are not definitively characterized on this CT examination but may represent a hemorrhagic cyst/involuting follicle. Given symptomatology, follow-up pelvic ultrasound examination is recommended in 6-12 weeks. No other acute abdominopelvic process identified. Signed by: Dr. Anderson Greer MD on 01/28/2019 1:08 PM Dictated By: ANDERSON GREER MD [id number] Transcribed By: DOROTHY on 01/28/19 1304 COPY TO: LEILANI HOWE GALLBLADDER 2019-01-28 11:56:00 [place] [address] Patient Name: WILFREDO LI MR #: [id number] : 1985 Age/Sex: 33/F Req #: [id number] Physician: Ordered by: LEILANI HOWE MD, MD Report #: [id number] Location: ER Room/Bed: Procedure: [id number] US/US GALLBLADDER Exam Date: 01/28/19 Exam Time: 1115 REPORT STATUS: Signed EXAM: US GALLBLADDER DATE: 01/28/2019 9:57 AM INDICATION: Abdominal pain COMPARISON: None FINDINGS: The visualized pancreas appears unremarkable. The liver is normal in size measuring 12.3 cm in length. The hepatic parenchyma is homogeneous without evidence for focal abnormality. The main portal vein is patent with antegrade flow and diameter of 1.1 cm, within normal limits. The gallbladder is unremarkable. There is no evidence for shadowing stones, wall thickening, or pericholecystic fluid. There is no intra or extra hepatic biliary ductal dilatation. The common bile duct measures 3 mm. Sonographic Tucker's sign is negative. The right kidney is normal in size measuring 11.0 cm in length with normal cortical thickness/echogenicity. There is no evidence for solid renal mass, hydronephrosis, or shadowing calculi within the right kidney. The visualized portions the IVC and aorta are within normal limits. There is no ascites visualized. IMPRESSION: Unremarkable right upper q uadrant ultrasound examination. Signed by: Dr. Anderson Greer MD on 01/28/2019 11:58 AM Dictated By: ANDERSON GREER MD [id number] Transcribed By: DOROTHY on 01/28/19 [id number] COPY TO: LEILANI HOWE
[2019-09-04] MEDS ORDERED: LIDOCAINE 1% 5ML-MPF INJ ONE (12:00)
--- NOTE | 2019-09-04 13:58 | Diagnostic Imaging Report ---
EXAM: FINGER LEFT DATE: 09/04/2019 11:58 AM INDICATION: Laceration COMPARISON: None FINDINGS/IMPRESSION: Small linear hypolucency identified within the ulnar aspect of the second proximal phalanx shaft which is only seen on the AP view. Findings likely represent a nutrient channel and less likely a nondisplaced fracture. The osseous structures are otherwise unremarkable without evidence for acute fracture or dislocation. No focal lytic or blastic abnormality is identified. The surrounding soft tissues are unremarkable without evidence for radiopaque foreign body. Signed by: Dr. Anderson Greer MD on 09/04/2019 1:55 PM
== END 2019-09-04 12:58 | disposition home or self-care (01) ==
LOC: ER 11:27
DX: S61.211A Laceration without foreign body of left index finger without damage to nail, initial encounter (principal); W29.3XXA Contact with powered garden and outdoor hand tools and machinery, initial encounter; Y93.H2 Activity, gardening and landscaping; Y92.007 Garden or yard of unspecified non-institutional (private) residence as the place of occurrence of the external cause
CPT/HCPCS: 99283